=== PATIENT | male | born 1965 | race Caucasian/White ===

== ENCOUNTER 2019-03-05 17:18 | Emergency (ER) | payer OTHER ==
[~2019-03-05] VITALS: Ht 177.8 cm; Wt 80.5 kg
[2019-03-05] MEDS ORDERED: SERT50TA12 PO (17:49)
[2019-03-05] MEDS ORDERED: LISI-661 PO (17:49)
[2019-03-05] MEDS ORDERED: AMLO5TAB9 PO (17:49)
[2019-03-05] MEDS ORDERED: METO25 PO (17:49)
[2019-03-05] MEDS ORDERED: LIB5 PO (17:49)
[2019-03-05 19:53] VITALS: BP 137/66
== END 2019-03-05 20:30 | disposition home or self-care (01) ==
LOC: EMS 17:18
DX: R76.11 Nonspecific reaction to tuberculin skin test without active tuberculosis (principal); F10.10 Alcohol abuse, uncomplicated; F17.210 Nicotine dependence, cigarettes, uncomplicated; I10 Essential (primary) hypertension; Z88.0 Allergy status to penicillin; Z79.899 Other long term (current) drug therapy
CPT/HCPCS: 99406